=== PATIENT | female | born 1970 | race Caucasian/White ===

== ENCOUNTER 2016-04-10 10:56 | Outpatient (CLI) | payer OTHER ==
--- NOTE | 2016-04-10 12:23 | DIAGNOSTIC IMAGING REPORT ---
PROCEDURE: MG UNILATERAL DIAG-LT W/CAD INDICATION: LEFT BREAST LUMP TECHNIQUE: Spot compression mammographic views of the left breast in the CC and MLO projection. A direct lateral left breast mammogram using CAD. The patient then went to ultrasound where cage-scale and color Doppler sonographic imaging of the left breast was performed. COMPARISON: 01/22/2016 FINDINGS: Mammograms: In the area of palpable abnormality on the CC view, there is an ill-defined, approximately 12 mm focus of glandularity which dissipates with spot compression. No correlate was visible on the MLO or lateral views. This area appears stable compared to the prior study. Ultrasound: Normal glandular tissue. No suspicious shadowing, cyst, or solid mass. No abnormal vascularity. IMPRESSION: 1. Stable mammographic appearance of glandular tissue in the left lateral breast without suspicious sonographic correlate. The patient can return to yearly screening mammography (January,). Findings and recommendations were discussed with the patient. RESULT CODE: 1- Negative. A. A negative report should not delay biopsy if a dominant or clinically suspicious mass is present. 10-15% of cancers are not identified by x-ray. B. A negative report may reinforce clinical impression. C. Adenosis and dense breasts may obscure an underlying neoplasm. D. False positive reports average 6-10%. E.. A yearly screening mammogram is recommended. A reminder letter will be scheduled.
== END 2016-04-10 23:00 ==
LOC: MAM SRH 10:56
DX: Z12.31 Encounter for screening mammogram for malignant neoplasm of breast (principal); N63 Unspecified lump in breast